=== PATIENT | female | born 1955 | race Caucasian/White ===

== ENCOUNTER 2021-10-14 13:56 | Emergency (ER) | payer MEDICARE ==
[2021-10-14] VITALS (10 sets, daily range): BP systolic 106–155; BP diastolic 69–107
[~2021-10-14] VITALS: Ht 167.6 cm; Wt 58.0 kg
[2021-10-14] MEDS ORDERED: ACTEMRA80 MG/4 ML IV (14:13)
[2021-10-14] MEDS ORDERED: SERTRALINE50 MG PO (14:14)
[2021-10-14] MEDS ORDERED: OFLOXACIN0.3 % OS (15:54)
== END 2021-10-14 16:11 | disposition home or self-care (01) ==
LOC: ED 13:56
DX: S05.02XA Injury of conjunctiva and corneal abrasion without foreign body, left eye, initial encounter (principal); M06.9 Rheumatoid arthritis, unspecified; F41.9 Anxiety disorder, unspecified; W25.XXXA Contact with sharp glass, initial encounter